=== PATIENT | male | born 1945 | race Caucasian/White ===

== ENCOUNTER 2018-11-11 06:07 | Day surgery (SDC) | payer MEDICARE, OTHER, SELFPAY ==
[2018-11-06 10:32] VITALS: BMI 26.6
[2018-11-11] VITALS (8 sets, daily range): BP systolic 117–148; BP diastolic 73–84; PULSE 63–74; RESP 9–15; TEMP 36.6–37.1; O2SAT 95–100; BMI 26.6
[2018-11-11] MEDS: LACTATED RINGERS 1,000 ML 42 ML IV ×2 (07:30→09:12)
--- NOTE | 2018-11-11 07:48 | PM.PREOP ---
Pre-operative Note Interval Note History & Physical reviewed/Exam performed by Physician: Yes Changes to H&P: No
[2018-11-11] MEDS: CEFAZOLIN 1 GM VIAL IV (07:55)
--- NOTE | 2018-11-11 08:11 | SUR.OPER ---
Supine on padded OR bed, head on pillow, arms secured on padded arm boards at <90 degrees abduction, legs uncrossed, safety belt at thigh, tape over blanket over lower legs.
[2018-11-11] MEDS: BUPIVACAINE 0.5% (PF) VIAL 30 ML INJ (08:23)
--- NOTE | 2018-11-11 09:17 | PM.OP.1 ---
Operative Date/Time/Diagnoses Date of procedure: 11/11/18 Time of procedure: 09:00 Pre-op diagnosis: Left quadriceps tendon rupture Post-op diagnosis: same Procedure & Clinicians Procedure: Left quadriceps tendon repair Same procedure as scheduled: Yes Indications: The patient is a 73-year-old gentleman who sustained the above-noted injury in a fall. An MRI confirmed a near complete rupture of the quadriceps tendon. He has agreed to open repair after discussion the risks benefits and alternatives. Risks discussed included but were not limited to failure to improve, rerupture, stiffness, infection, nerve damage, deep venous thrombosis, pulmonary embolism, stroke, myocardial infarction and . Surgeon: Gus White Click Yes if Unassisted: Yes Anesthesia Type: General and Local Operative Notes Findings: Near complete rupture of the quadriceps tendon with only a very small portion of the deep tendon remaining. Closure Type: primary Specimen(s): none sent Estimated Blood Loss (mL): 50 Blood products transfused: none Tourniquet time (min): 34 Procedure in detail: The patient was seen in the preoperative area where he identified the left knee as the operative site was marked with my initials. He received preoperative antibiotics and was taken to the operating room and placed on the operating room table in a supine position. A general anesthetic was induced and a tourniquet was placed about the proximal left thigh. A methods time analyst-out was performed. The left leg was prepared from the toes to the tourniquet with ChloraPrep in the usual fashion and draped through sterile drapes. The leg was elevated and exsanguinated with an Esmarch bandage the tourniquet inflated to 250 mm of mercury. An approximately 10 cm incision was created from the bottom of the patella to the distal quadriceps. This was carried to the extensor retinaculum and subcutaneous flaps developed. A substantial hematoma was suctioned from the knee joint. The proximal pole of the patella was freshened with a rongeur to create a healing surface. Two 5. Ethibond sutures were placed as Krackow stitches in the distal quadriceps tendon. A Beath pin was then used to drill across the patella 3 times. One limb of each of the sutures was placed in the medial and lateral tunnels. The 2nd limb of both sutures was placed through the central tunnel. The sutures were then tied in order to complete the repair. The retinacular tears medial and lateral to the patella were closed with a running 0 Vicryl. I then tested the repair and the patient could bend to 30? before any gapping was evident at the repair site. The wound was irrigated. The tourniquet was deflated at a total tourniquet time of 34 min. Hemostasis was obtained with electrocautery. Closure was performed with 3 0 Vicryl in a subcutaneous layer and a running 3 0 V lock suture for skin closure. The skin flaps were injected with 20 mL 0.5% Marcaine for postoperative pain control. Mastisol and Steri-Strips were then applied. The wound was dressed with an Aquacel dressing. This was followed by an Scott wrap and a hinged knee brace locked in full extension. The patient was then taken to the recovery room in good condition having tolerated the procedure well. Complications: none Condition: stable Disposition: PACU Plan for aftercare: The patient will be discharged to home today. He will be allowed to weightbear as tolerated in his brace. He will return to the clinic in 2 weeks for his 1st postop visit at which time he will be allowed to start taking anti-inflammatories for pain control. He has been instructed to avoid those until that time. Also at his 1st visit his brace will be opened from 0-30 degrees. He will then be seen 2 weeks later to go to 0-60 and 2 weeks after that to go to 0-90. Two weeks after that his brace should be discontinued.
[2018-11-11] MEDS: OXYCODONE/ACETAMINOPHEN 5/325 TABLET 1 TAB PO ×2 (09:35→09:47)
--- NOTE | 2018-11-11 09:51 | SUR.PHASEII ---
family at bedside. Medicated x2 for pain; appears uncomfortable; grimace, sighing. Desires to wait for Rx to take effect prior to leaving. Tolerating PO well. Glasses returned to patient. Skin warm and dry; resp even and regular.
== END 2018-11-11 10:20 | disposition home or self-care (01) ==
PROVIDERS: Visit Provider Orthopaedic Surgery
PROC: (CPT 27385; principal; 2018-11-11 07:45)
DX: S76.112A Strain of left quadriceps muscle, fascia and tendon, initial encounter (principal); I10 Essential (primary) hypertension; W01.0XXA Fall on same level from slipping, tripping and stumbling without subsequent striking against object, initial encounter; Y93.01 Activity, walking, marching and hiking
CPT/HCPCS: 27385; J0690; J1100; J2250; J2405; J2704; J3010